=== PATIENT | female | born 1980 | race Caucasian/White ===

== ENCOUNTER 2019-08-24 20:57 | Emergency (ER) | payer OTHER ==
[~2019-08-24] VITALS: Ht 157.5 cm; Wt 140.6 kg
[~2019-08-24 20:57] MED LIST: IBUPROFEN 200200 M1; NAPROSYN500 MG PO
[2019-08-24 21:47] LABS: INFLUENZA A ANTIGEN Negative (Negative); INFLUENZA B ANTIGEN Negative (Negative)
[2019-08-24 22:13] LABS: ABSOLUTE BASOPHILS 0.1 thou/uL (0.0-0.2); ABSOLUTE EOSINOPHILS 0.5 thou/uL (0.0-0.7); ABSOLUTE LYMPHOCYTES 2.5 thou/uL (0.8-5.3); ABSOLUTE MONOCYTES 0.6 thou/uL (0.0-1.2); ABSOLUTE NEUTROPHILS 5.4 thou/uL (1.6-8.1); BASOPHILS 0.7 %; EOSINOPHILS 5.2 %; HEMATOCRIT 36.4 % (37.0-47.0); HEMOGLOBIN 12.3 gm/dL (12.0-15.0); MCH 26.7 pg (26.0-34.0); MCHC 33.7 g/dL (28.0-37.0); MONOCYTES 6.1 %; MPV 8.7 fl. (7.2-11.1); NUCLEATED RBCS 0 /100WBC; PLATELET COUNT* 299 thou/uL (150-400); RDW-CV 16.3 % (10.5-14.5)
[2019-08-24 22:29] LABS: CALCIUM 8.6 mg/dL (8.5-10.1); CREATININE 0.9 mg/dL (0.6-1.3); POTASSIUM 3.7 mmol/L (3.5-5.1)
[2019-08-24 22:34] LABS: ALBUMIN 3.2 g/dL (3.4-5.0); TOTAL BILIRUBIN 0.1 mg/dL (<0.1-1.0); TOTAL PROTEIN 7.4 g/dL (6.4-8.2)
[2019-08-24 22:51] VITALS: BP 112/86
--- NOTE | 2019-08-25 14:17 | EKG ---
[place] [address] ELECTROCARDIOGRAM REPORT Name: ANEL BOO [id number] Admission: 08/24/19 Attend Phys: Discharge: 08/24/19 Date of : 80 Report #: [id number] THIS REPORT FOR: //name// [facility] ED Test Date: 2019-08-24 Test Time: 21:42:54 Pat Name: ANEL BOO Department: Room: Gender: F [employer]: CLEM : 1980 Requested By: Isai Garcia Order Number: [id number] MD: Tomasz Jain Measurements Intervals [place] Rate: 106 P: 65 SD: 128 QRS: 19 QRSD: 87 T: 42 QT: 332 QTc: 441 Interpretive Statements Sinus tachycardia Compared to ECG 01/12/2008 23:06:21 Sinus rhythm no longer present Electronically Signed On 08-25-2019 14:16:47 [employer] by Tomasz Jain [email or web address] <ELECTRONICALLY SIGNED> By: Tomasz Jain MD, [facility] 08/25/19 1416 [id number] Tomasz Jain MD, FACC /EPI
== END 2019-08-24 22:58 | disposition home or self-care (01) ==
LOC: M.ERS 20:57
PROVIDERS: Family Medicine
DX: R55 Syncope and collapse (principal); J45.909 Unspecified asthma, uncomplicated